=== PATIENT | male | born 1965 | race Caucasian/White ===

== ENCOUNTER 2017-07-20 16:45 | Inpatient (IN) | payer OTHER ==
[~2017-07-20] VITALS: Ht 175.3 cm; Wt 84.8 kg
[2017-07-20] MEDS ORDERED: ALBU8HFA4 INH (16:58)
[2017-07-20] MEDS ORDERED: MORPHINE SULFATE 2 MG/1 ML DISP.SYRIN IV ONE (17:30)
[2017-07-20] MEDS ORDERED: PIPERACILLIN SODIUM/TAZOBACTAM 3.375 G in IV DEXTROSE 5% 50 ML IV ONE (17:30)
[2017-07-20] MEDS ORDERED: ONDANSETRON 4 MG/2 ML VIAL IV ONE (17:30)
[2017-07-20] MEDS ORDERED: IV NORMAL SALINE 1000 ML BAG IV ONE (17:30)
[2017-07-20] MEDS ORDERED: PIPERACILLIN/TAZOBACTAM/D5W 50 ML IV ONE (17:38)
[2017-07-20] MEDS ORDERED: MORPHINE SULFATE 4 MG/1 ML DISP.SYRIN ONE (17:38)
[2017-07-20] MEDS ORDERED: VANCOMYCIN IV 200 ML ONE (17:38)
[2017-07-20] MEDS ORDERED: ONDANSETRON 4 MG/2 ML VIAL ONE (17:38)
[2017-07-20] MEDS ORDERED: ACETAMINOPHEN ES 500 MG TABLET PO ONE (18:00)
[2017-07-20] MEDS ORDERED: ACETAMINOPHEN ES 500 MG TABLET ONE (18:12)
[2017-07-20 18:13] LABS: BASOPHILS % (AUTO) 0.3 % (0.0-2.0); CREATININE 0.9 mg/dL (0.6-1.3); EOSINOPHILS % (AUTO) 0.1 % (0.0-7.0); HEMATOCRIT 36.5 % (36.7-47.1); HEMOGLOBIN 12.3 g/dL (12.5-16.3); LYMPHOCYTES # (AUTO) 1.2 K/uL (20.0-40.0); MEAN CORPUSCULAR HEMOGLOBIN 28.2 uug (23.8-33.4); MEAN CORPUSCULAR HGB CONC 34 g/dL (32.5-36.3); MEAN CORPUSCULAR VOLUME 83.8 fL (73.0-96.2); MONOCYTES # (AUTO) 1.3 K/uL (2.0-10.0); MONOCYTES % (AUTO) 9.4 % (0.0-11.0); NEUTROPHILS # (AUTO) 11.3 K/uL (1.8-8.9); NEUTROPHILS % (AUTO) 81.2 % (38.5-71.5); PLATELET COUNT (AUTO) 237 K/uL (152-348); POTASSIUM 3.8 mmol/L (3.5-5.1); RED BLOOD CELL COUNT(AUTO) 4.35 MIL/uL (4.06-5.63); WHITE BLOOD COUNT (AUTO) 13.9 K/uL (3.6-10.2)
[2017-07-20 18:19] LABS: BILIRUBIN,DIRECT 0.2 mg/dL (0.0-0.2); BILIRUBIN,TOTAL 0.5 mg/dL (0.2-1.0)
[2017-07-20] MEDS ORDERED: IV NORMAL SALINE 100 ML ONE (18:21)
[2017-07-20] MEDS ORDERED: IOHEXOL 300MG/ML 100 ML INFUS..BTL ONE ×2 (18:21→19:17)
[2017-07-20] MEDS ORDERED: NORMAL SALINE FLUSH 10 ML DISP.SYRIN ONE (18:21)
--- NOTE | 2017-07-20 19:32 | NUR ---
REPORT TAKEN FROM CRISTIAN JEAN. ASSUMING OT CARE AT THIS TIME.
--- NOTE | 2017-07-20 19:56 | NUR ---
UNABLE TO OBTAIN IV ACCESS AFTER MILT[employer]LE FAILED ATTEMPTS W/ VEIN FINDER. AWARE. OBTAINED PERMISSION FROM LUCIANA JARQUIN SUPERVISOR TO CALL FOR PICC/MIDLINEPLACEMENT. CALLED BOTH JARAD AND AMANDA, WHO TOLD ME THEY HAD BOTH QUIT. CALLED ROLANDO ARCE, WHO APPROVED PLACEMENT, BUT WAS NOT GIVEN AN ETA.
[2017-07-20] MEDS: VANCOMYCIN IV 1,000 MG in IV DEXTROSE 5% 250 ML IV ONE ×2 (20:18→22:00)
--- NOTE | 2017-07-20 20:19 | NUR ---
[facility] Waiting for Dr Millan to call back
--- NOTE | 2017-07-20 20:22 | NUR ---
ROLANDO ARCE CALLED BACK. STATED TO ADMIT PT, AND THAT HE WOULD COME IN A FEW HOURS TO PLACE LINE UPSTAIRS.
--- NOTE | 2017-07-20 21:14 | NUR ---
ABOUT 35ML INFILTRATE ON LEFT ARM, CALLED ER SPOKE WITH PTS. NURSE. DR GRACE CHANGED ORDER TO WITH OUT CONTRAST
--- NOTE | 2017-07-20 21:43 | NUR ---
ROLANDO ARCE AT PT BEDSIDE FOR MIDLINE PLACEMENT.
--- NOTE | 2017-07-20 21:47 | NUR ---
REPORT GIVEN TO CRISTIAN JUNIOR.
--- NOTE | 2017-07-20 22:00 | NUR ---
RENATEO INFUSING TO RT MIDLINE FOLLOWING PLACEMENT, ENDORSED TO FLOOR NURSE.
[2017-07-20] MEDS ORDERED: ACETAMINOPHEN 325 MG TABLET PO PRN (22:15)
[2017-07-20] MEDS ORDERED: ONDANSETRON 4 MG/2 ML VIAL IV PRN (22:15)
[2017-07-20] MEDS ORDERED: ZOLPIDEM 5 MG TABLET PO PRN (22:15)
[2017-07-20] MEDS ORDERED: ALBUTEROL SULFATE 2.5 MG/3 ML NEBU NEB PRN (22:15)
[2017-07-20] MEDS ORDERED: HYDROMORPHONE 2 MG/1 ML DISP.SYRIN IV PRN (22:15)
[2017-07-20] MEDS ORDERED: MAGNESIUM HYDROXIDE 30 ML LIQUID UDC PO PRN (22:15)
[2017-07-20 22:20] VITALS: BP 115/64
--- NOTE | 2017-07-20 22:28 | NUR ---
Pt. admitted to [facility], under care of Dr. NICHOLAS Belongs List completed
--- NOTE | 2017-07-20 22:30 | NUR ---
ADMITTED NEW PATIENT TO ROOM 205, ALERT,ORIENTED X 3,C/O PAIN/REDNESS AND SWELLING TO POSTERIOR RIGHT THIGH FOR 3 DAYS, PATIENT HAS MIDLINE TO RIGHT UPPER PLACED BY FROM ER,RECEIVING VANCOMYCIN 1000MG IV FROM ER GOING ON NOW,REASSESS PATIENT PLAN OF CARE WAS EXPLAINED,NEEDS ATTENDED.
[2017-07-20] MEDS: IV NS 1000 ML 1,000 ML IV PRN (22:53)
[2017-07-20] MEDS ORDERED: PIPERACILLIN SODIUM/TAZO 3.375 GM VIAL ONE (23:10)
[2017-07-20] MEDS ORDERED: VANCOMYCIN IV 1,000 MG in IV DEXTROSE 5% 250 ML IV ONE (23:15)
[2017-07-20] MEDS: HYDROMORPHONE 4 MG/1 ML DISP.SYRIN IV PRN (23:34)
[2017-07-21] MEDS: PIPERACILLIN/TAZOBACTAM/D5W 50 ML IV SCH ×4 (00:22→17:13)
[2017-07-21 04:46] VITALS: BP 116/61
[2017-07-21] MEDS: HYDROMORPHONE 4 MG/1 ML DISP.SYRIN IV PRN ×4 (05:12→20:42)
[2017-07-21 06:51] LABS: BASOPHILS # (AUTO) 0.1 K/uL (0.0-8.0); BASOPHILS % (AUTO) 0.4 % (0.0-2.0); EOSINOPHILS # (AUTO) 0.2 K/uL (0.0-0.7); EOSINOPHILS % (AUTO) 1.5 % (0.0-7.0); HEMATOCRIT 37.3 % (36.7-47.1); HEMOGLOBIN 12.3 g/dL (12.5-16.3); LYMPHOCYTES # (AUTO) 1.1 K/uL (20.0-40.0); LYMPHOCYTES % (AUTO) 7.9 % (20.5-51.5); MEAN CORPUSCULAR HEMOGLOBIN 27.8 uug (23.8-33.4); MEAN CORPUSCULAR HGB CONC 33 g/dL (32.5-36.3); MEAN CORPUSCULAR VOLUME 84.1 fL (73.0-96.2); MONOCYTES # (AUTO) 1.2 K/uL (2.0-10.0); MONOCYTES % (AUTO) 8.8 % (0.0-11.0); NEUTROPHILS # (AUTO) 10.9 K/uL (1.8-8.9); NEUTROPHILS % (AUTO) 81.4 % (38.5-71.5); PLATELET COUNT (AUTO) 243 K/uL (152-348); RED BLOOD CELL COUNT(AUTO) 4.44 MIL/uL (4.06-5.63); WHITE BLOOD COUNT (AUTO) 13.4 K/uL (3.6-10.2)
--- NOTE | 2017-07-21 06:54 | NUR ---
CONTINUE PAIN MANAGEMENT WITH DILAUDID 1 MG IV Q 4 HR,NEEDS ATTENDED.,PATIENT IS AFEBRILE,VITAL SIGNS WNL.
--- NOTE | 2017-07-21 07:00 | NUR ---
PATIENT IN BED ASLEEP, A AND O X 4. NO ACUTE DISTRESS NOTED. ABLE TO MAKE NEEDS KNOWN. ON IVATB VANCOMYCIN AND ZOSYN FOR CELLULITIS ON THE RIGHT THIGH, WELL TOLERATED. ALL COMFORT MEASURES PROVIDED. CALL LIGHT WITHIN REACH WILL CONTINUE TO MONITOR CLOSELY.
[2017-07-21 07:50] LABS: BILIRUBIN,TOTAL 0.4 mg/dL (0.2-1.0); CREATININE 0.8 mg/dL (0.6-1.3); MAGNESIUM 1.8 mg/dL (1.8-2.4); PHOSPHOROUS 2.3 mg/dL (2.5-4.9); POTASSIUM 3.6 mmol/L (3.5-5.1); TOTAL PROTEIN, SERUM 6.8 g/dL (6.4-8.2)
[2017-07-21] MEDS: FAMOTIDINE 20 MG TABLET PO SCH ×2 (09:00→09:10)
[2017-07-21] MEDS ORDERED: NICOTINE 21 MG/24HR PATCH TD SCH (09:00)
--- NOTE | 2017-07-21 09:00 | NUR ---
HOUSEKEEPING FOUND CIGARETTE BUTTS IN TRASH CAN OF PATIENTS RESTROOM, NOTIFIED HENRY CHARGE NURSE. BOTH CHARGE NURSE AND ADMISSIONS EVALUATOR TALKED TO PATIENT ABOUT HOSPITAL POLICY AND THAT SMOKING IS PROHIBITED. ALSO EXPLAINED THAT IF HE SMOKES AGAIN HE WILL HAVE TO LEAVE. REINFORCED TEACHINGS, WILL CONTINUE TO MONITOR CLOSELY.
[2017-07-21] MEDS: VANCOMYCIN IV 1,500 MG in IV DEXTROSE 5% 500 ML IV SCH ×2 (09:10→20:41)
--- NOTE | 2017-07-21 10:38 | NUR ---
CLINICAL PHARMACY NOTE: VANCOMYCIN PHARMACY TO DOSE Subjective: To start vanco for this 51 y/o male for cellulitis patient received vanco 1gm IVPB x1 in ED on 07/20 at 2200 Objective: height 175 cm weight 84.8 kg BUN 8 Scr 0.8 wbc 13.4 temp 98.9 Assessment/Plan Will start vanco [id number] IVPB q12h for predicted vanco trough level of 15.8 mcg/ml at steady state. 1st dose is due today at 0900. Plan to draw vanco trough level before 4th dose (not yet ordered). Will monitor renal function & adjust the dose if needed. Will follow
[2017-07-21] MEDS ORDERED: NEUTRA PHOS PACKET PO ONE (11:15)
[2017-07-21 11:22] VITALS: BP 96/59
[2017-07-21] MEDS: IV NS 1000 ML 1,000 ML IV PRN (14:37)
[2017-07-21 15:30] VITALS: BP 99/57
[2017-07-21 16:00] LABS: *BILIRUBIN,URIN NEGATIVE (NEGATIVE); *BLOOD, URINE 1+ (NEGATIVE); *CLARITY,URINE CLEAR (CLEAR); *COLOR,URINE YELLOW (YELLOW); *KETONES,URINE NEGATIVE (NEGATIVE); *PROTEIN,URINE NEGATIVE (NEGATIVE); LEUKOCYTE ESTERASE ,URINE NEGATIVE (NEGATIVE); NITRITE, URINE NEGATIVE (NEGATIVE); UGLUCOSE NEGATIVE (NEGATIVE)
[2017-07-21 16:06] LABS: *AMPHETAMINE, URINE POSITIVE (NEGATIVE); *BARBITURATE, URINE NEGATIVE (NEGATIVE); *CANNABINOID, URINE NEGATIVE (NEGATIVE); *COCCAINE, URINE NEGATIVE (NEGATIVE); *OPIATE, URINE POSITIVE (NEGATIVE); *PHENCYCLIDINE SCREEN,URINE NEGATIVE (NEGATIVE)
[2017-07-21 17:21] LABS: MUCUS,URINE FEW /LPF (0-FEW); WBC,URINE 0-3 /HPF (0-3)
--- NOTE | 2017-07-21 18:35 | NUR ---
END OF SHIFT NOTES: PATIENT IN BED ASLEEP, EASILY AROUSABLE, NO ACUTE DISTRESS NOTED. PICC LINE ON ELDER INTACT AND RUNNING NS AT 100 CC/HR, INFUSING WELL. ALL NEEDS ATTENDED AND ANTICIPATED. COMFORT MEASURES PROVIDED WILL CONT TO MONITOR AND ENDORSE ACCORDINGLY.
[2017-07-21 20:00] VITALS: BP 105/60
[2017-07-21] MEDS ORDERED: LACTOBACILLUS RHAMNOSUS GG 1 EACH CAPSULE PO SCH (21:00)
[2017-07-22] MEDS: PIPERACILLIN/TAZOBACTAM/D5W 50 ML IV SCH (00:20)
[2017-07-22] MEDS ORDERED: HYDROMORPHONE 4 MG/1 ML DISP.SYRIN ONE (03:16)
[2017-07-22] MEDS: HYDROMORPHONE 4 MG/1 ML DISP.SYRIN IV PRN (03:28)
== END 2017-07-22 04:00 | disposition left against medical advice (07) | DRG 720 ==
LOC: ER 16:48 → MED 21:18
PROVIDERS: ADMIT Internal Medicine; ATTEND Internal Medicine
DX: A41.9 Sepsis, unspecified organism (principal); D68.9 Coagulation defect, unspecified; D89.9 Disorder involving the immune mechanism, unspecified; E44.0 Moderate protein-calorie malnutrition; E87.1 Hypo-osmolality and hyponatremia; E83.39 Other disorders of phosphorus metabolism; F11.10 Opioid abuse, uncomplicated; L02.415 Cutaneous abscess of right lower limb; S71.131S Puncture wound without foreign body, right thigh, sequela; D64.9 Anemia, unspecified; L03.115 Cellulitis of right lower limb; X78.8XXS Intentional self-harm by other sharp object, sequela; Z68.27 Body mass index [BMI] 27.0-27.9, adult; J45.909 Unspecified asthma, uncomplicated; Z81.3 Family history of other psychoactive substance abuse and dependence; F17.210 Nicotine dependence, cigarettes, uncomplicated; Z76.5 Malingerer [conscious simulation]; R94.6 Abnormal results of thyroid function studies
CPT/HCPCS: 36415; 71045; 73700; 80307; 83550; 83605; 83735; 84100; 84443; 85025; 85730; 87040; 87086; 94664; A4663; A9150; J1170; J2270; J2405; J2543; J3370; J3490; J7030; J7060; Q9967